=== PATIENT | male | born 1980 | race Caucasian/White ===

== ENCOUNTER 2018-08-14 20:28 | Emergency (ER) | payer OTHER ==
[~2018-08-14] VITALS: Ht 185.4 cm; Wt 117.0 kg
[~2018-08-14 20:28] MED LIST: ALBUTEROL SULF8.5 GM IH; AMOXICILLIN500 MG PO; ATIVAN1 MG PO; AZITHROMYCIN250 MG PO; CITALOPRAM HBR20 MG PO; MONTELUKAST SOD10 MG PO; QVAR7.3 G1 INH; WELLBUTRIN XL150 MG PO
[2018-08-15] MEDS ORDERED: PREDNISONE20 MG PO (00:07)
--- NOTE | 2018-08-15 15:28 | EKG ---
[facility] [address] [facility] [place], [place] [address] Signed Normal sinus rhythm Normal ECG No previous ECGs available Confirmed by MOHINI YEUNG DO ([id number]) on 08/15/2018 3:27:47 PM Electronically Signed By: MOHINI YEUNG DO 08/15/18 1528 PATIENT NAME: DORY MCNAMARA Electrocardiogram DATE OF : 84 PHYSICIAN: MOHINI YEUNG DO REPORT #: [id number] REPORT IS CONFIDENTIAL AND NOT TO BE RELEASED WITHOUT AUTHORIZATION
== END 2018-08-15 00:34 | disposition home or self-care (01) ==
LOC: ED 20:28
DX: J45.909 Unspecified asthma, uncomplicated (principal); F41.9 Anxiety disorder, unspecified; Z91.010 Allergy to peanuts; Z88.8 Allergy status to other drugs, medicaments and biological substances; Z79.899 Other long term (current) drug therapy
CPT/HCPCS: 71045; 71260; 80053; 84484; 85025; 93005; 93010; 94644; 94645; 96361; 99285-25; J2930; J7030; Q9967

== ENCOUNTER 2019-05-15 14:22 | Emergency (ER) | payer OTHER ==
[~2019-05-15] VITALS: Ht 185.4 cm; Wt 111.1 kg
[~2019-05-15 14:22] MED LIST changes: +PREDNISONE20 MG PO
[2019-05-15] MEDS ORDERED: IPRAT-ALBUT 0.5-3 ML INH (16:37)
[2019-05-15] MEDS ORDERED: CEFDINIR300 MG PO (16:37)
[2019-05-15] MEDS ORDERED: AZITHROMYCIN500 MG PO (16:37)
[2019-05-15] MEDS ORDERED: PREDNISONE20 MG PO (16:37)
== END 2019-05-15 16:45 | disposition home or self-care (01) ==
LOC: ED 14:22
DX: J45.901 Unspecified asthma with (acute) exacerbation (principal); J98.8 Other specified respiratory disorders; F41.9 Anxiety disorder, unspecified; Z91.010 Allergy to peanuts; Z88.8 Allergy status to other drugs, medicaments and biological substances; Z79.52 Long term (current) use of systemic steroids; Z79.899 Other long term (current) drug therapy
CPT/HCPCS: 71045; 94640; 96374; 99284-25; 99406; J2930; J3475; J7030

== ENCOUNTER 2021-02-01 16:35 | Emergency (ER) | payer OTHER ==
[~2021-02-01] VITALS: Ht 185.4 cm; Wt 111.1 kg
[~2021-02-01 16:35] MED LIST changes: +AZITHROMYCIN500 MG PO; +CEFDINIR300 MG PO; +IPRAT-ALBUT 0.5-3 ML INH
[2021-02-01] MEDS ORDERED: ESCITALOPRAM OX10 MG PO (16:57)
[2021-02-01] MEDS ORDERED: MONTELUKAST SOD10 MG PO (16:57)
[2021-02-01] MEDS ORDERED: SYMBICORT 16010.2 GM INH (16:57)
--- NOTE | 2021-02-01 18:12 | EKG ---
[facility] [address] [facility] [place] [address] Signed Normal sinus rhythm Normal ECG When compared with ECG of 14-AUG-2018 20:37, No significant change was found Confirmed by CELESTE KERR MD ([id number] on 02/01/2021 6:12:04 PM Electronically Signed By: CELESTE KERR MD 02/01/211811 PATIENT NAME: NAIMADORY KANU Electrocardiogram DATE OF : 84 PHYSICIAN: CELESTE KERR MD REPORT #: [id number] REPORT IS CONFIDENTIAL AND NOT TO BE RELEASED WITHOUT AUTHORIZATION
== END 2021-02-01 18:44 | disposition home or self-care (01) ==
LOC: ED 16:35
DX: R00.2 Palpitations (principal); T48.5X5A Adverse effect of other anti-common-cold drugs, initial encounter; U07.1 COVID-19; J45.909 Unspecified asthma, uncomplicated; Z91.010 Allergy to peanuts; Z91.048 Other nonmedicinal substance allergy status; Z79.899 Other long term (current) drug therapy
CPT/HCPCS: 93005; 93010; 99284-25

== ENCOUNTER 2021-03-28 20:17 | Emergency (ER) | payer OTHER ==
[~2021-03-28] VITALS: Ht 185.4 cm; Wt 117.9 kg
[~2021-03-28 20:17] MED LIST changes: +ESCITALOPRAM OX10 MG PO; +SYMBICORT 16010.2 GM INH
--- OUTSIDE RECORDS SUMMARY | 2021-03-28 20:20 | XMS ---
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 Dina has no Care Guidelines for this patient. Reji VISIT COUNT (12 MO.) 2 [facility] TOTAL 2 NOTE: Visits indicate total known visits. ED/C VISIT TRACKING (12 MO.) 03/28/2021 20:18 [facility] TYPE: Emergency COMPLAINT: - ALLERGIC REACTION, SHORTNESS OF BREATH 02/01/2021 16:[address] [facility] TYPE: Emergency COMPLAINT: - RAPID HEARRT RATE, COVID + DIAGNOSES: - COVID-19 - Adverse effect of other audr-nrzcco-rwvj drugs, initial encounter - Allergy to peanuts - Other nonmedicinal substance allergy status - Unspecified asthma, uncomplicated - Other roasterman (current) drug therapy - Palpitations INPATIENT VISIT TRACKING (12 MO.) No inpatient visits to display in this time frame [email or web address]
[2021-03-28] MEDS ORDERED: PREDNISONE20 MG PO (21:52)
== END 2021-03-28 22:34 | disposition home or self-care (01) ==
LOC: ED 20:17
DX: T78.1XXA Other adverse food reactions, not elsewhere classified, initial encounter (principal); L53.9 Erythematous condition, unspecified; J45.909 Unspecified asthma, uncomplicated; Z91.010 Allergy to peanuts; Z91.09 Other allergy status, other than to drugs and biological substances; Z79.899 Other long term (current) drug therapy
CPT/HCPCS: 96374; 99283-25; J2930

== ENCOUNTER 2022-09-05 16:30 | Emergency (ER) | payer OTHER ==
[~2022-09-05] VITALS: Ht 185.4 cm; Wt 117.9 kg
[2022-09-05] MEDS ORDERED: BUSPIRONE HCL15 MG PO (17:01)
[2022-09-05 19:11] VITALS: BP 135/90
== END 2022-09-05 19:11 | disposition home or self-care (01) ==
LOC: ED 16:30
DX: J45.901 Unspecified asthma with (acute) exacerbation (principal); Z91.010 Allergy to peanuts; Z91.048 Other nonmedicinal substance allergy status; Z79.899 Other long term (current) drug therapy
CPT/HCPCS: 71045; J2930